=== PATIENT | male | born 1980 | race Caucasian/White ===

== ENCOUNTER 2018-03-16 22:05 | Emergency (ER) | payer OTHER, MEDICAID, SELFPAY ==
[2018-03-16 22:06] VITALS: BP 154/100; PULSE 92; RESP 16; TEMP 37.3; O2SAT 99; BMI 20.5
--- NOTE | 2018-03-16 22:40 | ED.VISSUMM ---
- ER Visit Summary Date of Service: 03/16/18 Chief Complaint: Dental pain History of Present Illness: The patient is a 37 M presenting for evaluation secondary dental pain. Patient reports that he has been having dental pain over the course of the last 2 days. He states this was gradual in onset was not associated with any trauma and he denies any presence of fevers. He states that he has significant decay of his left mandibular molar. He has not followed up with a dentist. Physical Examination: Physical exam unremarkable except for oral exam. There is no evidence of sublingual swelling no evidence of trismus and no evidence of focal abscess in the gums. Significant decay of the first and second left mandibular molars with mild amount of swelling on the outside of the patient's face and some anterior lymphadenopathy that is palpable. Remainder physical otherwise unremarkable. Test Results: None indicated Emergency Department Course and Treatment: Patient presented with dental pain. Physical exam shows a likely early infection. Patient will be treated with penicillin Naprosyn and a short course of analgesia. Disposition: Discharge Impression: 1. Odontalgia with infection This note was generated with [employer] dictation software. It may contain incorrect words, spelling, and punctuation that were not noted in review of the chart prior to signing ED Disposition - Plan for ED Patient: Disposition: Home or Assisted Living Chief Complaint: Dental Diagnosis: Pain, dental Instructions: ED Cavity Dental Prescriptions: Hydrocodone Bitart/Apap 5-325 [[place] 5MG-325MG] 1 tab PO Q6H PRN PRN 3 Days #12 tab PRN Reason: Pain Naproxen [Naprosyn] 500 mg PO BID PRN #20 tab Penicillin V Potassium 500 mg PO 4X/DAY #40 tab Referrals: Anshul Gonzales MD [Primary Care Provider] -
--- NOTE | 2018-03-16 22:44 | ED.DCSUM_ITS ---
- ER Visit Summary Date of Service: 03/16/18 Chief Complaint: Dental pain History of Present Illness: The patient is a 37 M presenting for evaluation secondary dental pain. Patient reports that he has been having dental pain over the course of the last 2 days. He states this was gradual in onset was not associated with any trauma and he denies any presence of fevers. He states that he has significant decay of his left mandibular molar. He has not followed up with a dentist. Physical Examination: Physical exam unremarkable except for oral exam. There is no evidence of sublingual swelling no evidence of trismus and no evidence of focal abscess in the gums. Significant decay of the first and second left mandibular molars with mild amount of swelling on the outside of the patient's face and some anterior lymphadenopathy that is palpable. Remainder physical otherwise unremarkable. Test Results: None indicated Emergency Department Course and Treatment: Patient presented with dental pain. Physical exam shows a likely early infection. Patient will be treated with penicillin Naprosyn and a short course of analgesia. Disposition: Discharge Impression: 1. Odontalgia with infection This note was generated with [employer] dictation software. It may contain incorrect words, spelling, and punctuation that were not noted in review of the chart prior to signing ED Disposition - Plan for ED Patient: Disposition: Home or Assisted Living Chief Complaint: Dental Diagnosis: Pain, dental Instructions: ED Cavity Dental Prescriptions: Hydrocodone Bitart/Apap 5-325 [[place] 5MG-325MG] 1 tab PO Q6H PRN PRN 3 Days #12 tab PRN Reason: Pain Naproxen [Naprosyn] 500 mg PO BID PRN #20 tab Penicillin V Potassium 500 mg PO 4X/DAY #40 tab Referrals: Anshul Gonzales MD [Primary Care Provider] -
[2018-03-16] MEDS: Naproxen 500 MG Tablet PO (22:47)
[2018-03-16] MEDS: Penicillin Vk 250 MG Tablet 500 MG PO (22:47)
== END 2018-03-16 22:53 | disposition home or self-care (01) ==
PROVIDERS: Emergency Provider Emergency Medicine; Family Provider Family Medicine; PCP Family Medicine
DX: K08.89 Other specified disorders of teeth and supporting structures (principal); K04.7 Periapical abscess without sinus; K02.9 Dental caries, unspecified; F32.9 Major depressive disorder, single episode, unspecified; Z72.0 Tobacco use; Z79.899 Other long term (current) drug therapy
CPT/HCPCS: 99283